=== PATIENT | female | born 1970 | race Caucasian/White ===

== ENCOUNTER 2017-10-22 10:28 | Observation (INO) | payer SELFPAY ==
[2017-10-22] MEDS ORDERED: PROMETHAZINE HCL 25 MG in DEXTROSE 5 % IN WATER 50 ML IV ONE ×2 (11:05)
[2017-10-22] MEDS ORDERED: NORMAL SALINE 1,000 ML IV ONE (11:05)
[2017-10-22] MEDS ORDERED: KETOROLAC TROMETHAMINE 30 MG/ML VIAL IV ONE (11:05)
--- NOTE | 2017-10-22 11:07 | ERNOTE ---
Medical Problem HPI - Narrative Date of Service: 10/22/17 - General Chief Complaint: Nausea/Vomiting Time Seen by Provider: 10/22/17 10:58 Source: patient Exam Limitations: no limitations - Immun/Allergies/Home Medications Immunizations: IMMUNIZATION HX Immunizations Up to Date Yes History of Influenza Vaccine No Hx Pneumococcal Vaccination No Allergies/Adverse Reactions: Allergies No Known Allergies Allergy (Verified 02/20/16 16:29) Home Medications: HOME MEDICATIONS Ondansetron [Zofran Odt] 8 mg PO Q8H PRN #12 tab 08/19/15 [Last Taken Unknown] Metoprolol Tartrate [Lopressor] 100 mg PO BID 10/19/15 [Last Taken Unknown] Acetaminophen [Tylenol] 650 mg PO QID PRN #30 tablet 02/25/16 [Last Taken Unknown] Calcium Carbonate [Calcium] 500 mg PO DAILY #0 tab.chew 02/25/16 [Last Taken Unknown] Magnesium Oxide [Mag-Ox 400] 400 mg PO TID #10 tablet 02/25/16 [Last Taken Unknown] Potassium Chloride [K-Dur] 20 meq PO DAILY 02/25/16 [Last Taken Unknown] - History of Present History Narrative: Pt. comes in with c/o diffuse abdominal pain and uncontrolled nausea and vomiting for a week. Pt. has been seen by her cancer doctor recently and is undergoing chemo therapy for her ovarian cancer and was told that this chemo is milder than previous and should not make her ill but she has been ill since starting this. Pt. states that she has not been able to hold down any of her oral medications do to her nausea. Pt. states taht she has not had a regular BM in a few days and states taht now she has diarrhea since this am. Timing: getting worse Severity: moderate Modifying Factors - (Improves): Present: other - denies Modifying Factors - (Worsens): Present: eating, medication Review of Systems - Review of Systems Constitutional: Present: weakness, fatigue, malaise. Absent: fever, chills EYE: Present: no symptoms reported ENT: Present: no symptoms reported. Absent: nose pain, nose congestion, nasal drainage, sore throat Respiratory: Present: no symptoms reported. Absent: shortness of breath, cough , wheezing Cardiology: Present: no symptoms reported. Absent: chest pain, palpitations, edema Gastrointestinal/Abdominal: Present: nausea, vomiting, constipation, abdominal pain - diffuse, eating less, drinking less. Absent: diarrhea Genitourinary: Present: no symptoms reported. Absent: frequency, pain, dysuria , decreased urinary output Musculoskeletal: Present: no symptoms reported. Absent: back pain, joint pain Skin: Present: no symptoms reported. Absent: rash, change in hair/nails Neurological: Present: no symptoms reported. Absent: headache, dizziness/light- headedness, numbness, tingling Endocrine: Present: no symptoms reported Hematologic/Lymphatic: Present: easy bruising. Absent: easy bleeding All Other Systems: All systems neg except as marked - Patient's Past Medical History Patient History - Medical: Anemia Patient History - Cardiac/Respiratory: Hypertension Patient History - Cancer: Ovarian Patient History - Surgical Procedures: , Hysterectomy, Other Patient History - Other: None - Social History Living Situations: home Abuse History: No History of abuse Psych History: No pertinent hx Smoking Status: Never smoker Have you smoked in the past 12 months: No Do you dip or chew tobacco: No Alcohol Use: sober Drug Use: none - Immunizations Immunizations Up to Date: Yes Hx Pneumococcal Vaccination: No History of Influenza Vaccine: No Physical Exam - Physical Exam General Appearance: Present: wd/wn, alert, no apparent distress Head Exam: Present: normal inspection, no evidence of injury Eye Exam: Normal inspection: bilateral Ears, Nose, Throat: Present: normal except -, normal pharynx, dry mucous membranes Neck: Present: normal inspection, nontender, supple, full range of motion. Absent: lymphadenopathy (R), lymphadenopathy (L) Respiratory: Present: no respiratory distress, normal breath sounds, no accessory muscle use, chest nontender, lungs clear. Absent: crackles, rales, rhonchi, wheezing Cardiovascular/Chest: Present: no murmur, normal peripheral pulses, tachycardia Gastrointestinal/Abdominal: Present: tenderness - diffuse, abnormal bowel sounds - rare, distended - asceites. Absent: rebound, McBurney sign, Obturator sign, Nolasco sign, Psoas sign Back Exam: Present: normal inspection, normal range of motion, no CVA tenderness , no vertebral tenderness Extremity Exam: Present: normal inspection, non-tender, normal range of motion, no edema Neurological Exam: Present: alert, oriented, normal mood/affect, no motor/ sensory deficits, pharmaceutical officer II-XII nml as tested, normal cerebellar test Skin Exam: Present: warm/dry, pallor, other - poor skin turgor ED Progress - Date and Time Seen: Date and Time: 10/22/[address] Lana Saravia who is on for her oncologist who states that she feels that pt. needs admission with paracentesis and rehydration and bowel management. [address] Sequeira who recommends admissitng pt. adding D5 1/2 NS and consulting radiology - Results and Orders Patient's Lab Results:: I have reviewed the patient's lab results. Results and Orders: Abnormal Lab Results 10/22/17 10/22/17 10/22/17 Range/Units 11:33 11:33 12:39 WBC 1.6 L (4.0-10.5) K/mm3 RBC 4.06 L (4.2-5.4) M/mm3 Hct 36.6 L (37.0-47.0) % MCH 31.3 H (27-31) pg Plt Count 42 L (150-450) K/mm3 MPV 10.8 H (6.0-9.5) fl Neutrophils % (Manual) 26 L (42-75) % Lymphocytes % (Manual) 63 H (20-51) % Eosinophils % (Manual) 4 H (0-3) % Neutrophils # (Manual) 0.4 L (1.3-6.0) K/mm3 Lymphocytes # (Manual) 1.0 L (1.5-3.5) k/mm3 Atypic/Reactive Lymphs 4 H (0-2) % Platelet Estimate Decreased L (NORMAL) Plasma Sodium 143 H (130-142) mmol/L Potassium 2.9 L (3.4-4.6) mmol/L Anion Gap 15.0 H (6.8-13.8) mmol/L Random Glucose 133 H (70-110) mg/dL Total Bilirubin 1.4 H (0.0-1.1) mg/dL Albumin 3.0 L (3.4-5.0) gm/dl Amylase 20 L (25-115) U/L Lipase 45 L (73-393) U/L Urine Protein 30 H (NEGATIVE) mg/dL Urine Bilirubin 3 H (NEGATIVE) mg/dl Urine Urobilinogen 2.0 H (NORMAL) EU/dl Urine WBC Trace H (0-5) /hpf Ur Epithelial Cells 5-10 H (0-5) /hpf - Vital Signs Patient's Vital Signs:: I have reviewed the patient's vital signs. Vital Signs: Vital Signs 10/22/17 10:39 Temperature 36.0 C L Pulse Rate 127 H Respiratory 17 Rate Blood Pressure 138/118 O2 Sat by Pulse 99 Oximetry - EKG EKG: changed from - 2016, other - SR with mild ST depression in anterior leads only 1 box so not likely ischemia but more likely hypokalemia EKG read: Interp. by me - X-Ray X-Ray #1 X-Ray: abdomen Interpretation: Reviewed by me X-ray Comments: large amount of ascietes - CT/Ultrasound CT/Ultrasound Narrative: CT scan with severe increasing asceites, no bowel obstruction. - Progress/Reassessment Chief Complaint: Nausea/Vomiting Progress:: Unchanged Departure Clinical Impression: Hypokalemia, Thrombocytopenia Ascites Qualifiers: Ascites type: malignant Qualified Code(s): R18.0 - Malignant ascites Abdominal pain Qualifiers: Abdominal location: generalized Qualified Code(s): R10.84 - Generalized abdominal pain Ovarian ca Qualifiers: Laterality: unspecified laterality Qualified Code(s): C56.9 - Malignant neoplasm of unspecified ovary Neutropenia Qualifiers: Neutropenia type: secondary to cancer chemotherapy Qualified Code(s): D70.1 - Agranulocytosis secondary to cancer chemotherapy; T45.1X5A - Adverse effect of antineoplastic and immunosuppressive drugs, initial encounter; T45.1X5A - Adverse effect of antineoplastic and immunosuppressive drugs, initial encounter - Departure Disposition: [facility] Condition: Serious
[2017-10-22] MEDS ORDERED: KETOROLAC TROMETHAMINE 30 MG/ML VIAL ONE (11:15)
[2017-10-22 11:40] LABS: Hematocrit 36.6 % (37.0-47.0); Hemoglobin 12.7 gm/dL (12.5-16.0); Mean Cell Volume 90.1 fl (78-100); Mean Corpuscular Hemoglobin 31.3 pg (27-31); Mean Corpuscular Hgb Conc 34.7 g/dl (32-36); Mean Platelet Volume 10.8 fl (6.0-9.5); Platelet Count 42 K/mm3 (150-450); Red Blood Count 4.06 M/mm3 (4.2-5.4); Red Cell Distribution Width 12.4 % (11.5-14.0); White Blood Count 1.6 K/mm3 (4.0-10.5)
[2017-10-22 11:44] LABS: Total Cells Counted 100
[2017-10-22 11:57] LABS: BUN/Creatinine Ratio 18.1 (9.0-21.6); Bilirubin, Total 1.4 mg/dL (0.0-1.1); Ca. Corrected For Albumin 9.4 mg/dL (8.4-10.2); Calcium * 8.9 mg/dL (7.9-10.9); Carbon Dioxide 26.9 mmol/L (24-32.6); Potassium 2.9 mmol/L (3.4-4.6); Total Protein 6.3 gm/dL (6.2-8.2)
[2017-10-22 12:08] LABS: Atypical (Reactive) Lymph 4 % (0-2); Eosinophil 4 % (0-3); Lymphocyte 63 % (20-51); Macrocytosis 1+; Monocyte 3 % (0-9); Neutrophil 26 % (42-75); Neutrophil # 0.4 K/mm3 (1.3-6.0); Platelet Estimate Decreased (NORMAL)
[2017-10-22] MEDS: POTASSIUM CHLORIDE IN WATER 100 ML IV SCH ×4 (12:32→15:40)
[2017-10-22 12:50] LABS: Urine Bilirubin 3 mg/dl (NEGATIVE); Urine Blood Negative /ul (NEGATIVE); Urine Ketone 50 mg/dL (NEGATIVE); Urine Nitrite Negative (NEGATIVE); Urine Protein 30 mg/dL (NEGATIVE); Urine Specific Gravity 1.025 SP.GR. (1.005-1.010)
[2017-10-22 12:59] LABS: Urine Color Yellow
[2017-10-22 13:00] LABS: Urine Appearance Slightly Cloudy; Urine Bacteria TRACE; Urine RBC TRACE /hpf (0-5); Urine WBC TRACE /hpf (0-5)
[2017-10-22] MEDS ORDERED: DIATRIZOATE MEGLUMINE, SODIUM 30 ML BTL PO ONE (13:46)
[2017-10-22] MEDS ORDERED: DIATRIZOATE MEGLUMINE, SODIUM 30 ML BTL ONE (14:00)
[2017-10-22] MEDS ORDERED: HYDROmorphone HCL 2 MG/ML VIAL ONE (14:31)
[2017-10-22] MEDS ORDERED: HYDROmorphone HCL 2 MG/ML VIAL IV ONE (14:32)
[2017-10-22] MEDS ORDERED: ONDANSETRON HCL/PF 2 MG/ML VIAL ONE (15:17)
[2017-10-22] MEDS ORDERED: ONDANSETRON HCL/PF 2 MG/ML VIAL IV ONE (15:17)
[2017-10-22 17:28] LABS: Magnesium 1.2 mg/dL (1.2-2.8); Phosphorus 3.2 mg/dL (2.2-4.2)
[2017-10-22 18:05] LABS: Prothrombin Time (Patient) 11.6 Seconds (9.0-11.0)
[2017-10-22 18:09] LABS: INR 1.16 INR (0.90-1.10)
[2017-10-22] MEDS: DEXTROSE 5%-0.5 NORMAL SALINE 1,000 ML IV PRN (18:46)
[2017-10-22] MEDS ORDERED: oxyCODONE HCL/ACETAMINOPHEN 1 TAB TABLET PO PRN (20:09)
[2017-10-22] MEDS ORDERED: MEPERIDINE HCL/PF 50 MG/ML SYRG IV PRN (20:11)
[2017-10-22] MEDS ORDERED: ACETAMINOPHEN 325 MG TABLET PO PRN (20:12)
[2017-10-22] MEDS ORDERED: ONDANSETRON HCL/PF 2 MG/ML VIAL IV PRN (20:13)
--- NOTE | 2017-10-22 20:37 | HP ---
Chief Complaint - Chief Complaint Date of Service: 10/22/17 Time of Service: 20:17 Chief Complaint: abdominal pain, nausea, vomiting and diarrhea History of Present Illness: 47 years old female adm to [facility] with reports of nausea, vomiting and diarrhea that got worst today. PMH significant for ovarian cancer currently getting chemotherapy and Hypertension. pt stated since her last chemo treatment on Sunday her s/s had intensified. She had her first treatment the week before. pt stated her s/s was continues and only intensified after second treatment. pt have 3rd chemo schedule for tomorrow. She called Oncologist in [place] who recommend she come to the ER due to her s/s. in ER K+ 2.9, WBC 1.6 , PLT 42 she is clinically dehydrated and IVF rehydration, Ascites with reports of abdominal pain. pt is schedule for US guided paracentesis tomorrow. Plan of care discussed with pt and family they verbalized understanding and agree. - Patient's Past Medical History Patient History - Medical: Anemia Patient History - Cardiac/Respiratory: Hypertension Patient History - Cancer: Ovarian Patient History - Surgical Procedures: , Hysterectomy, Other Patient History - Other: None - Family History Mother Family History - Medical: Diabetes Type 2 Family History - Cardiac/Respiratory: Hyperlipidemia Father Family History - Medical: Diabetes Type 2 Family History - Cardiac/Respiratory: Hypertension - Social History Living Situations: spouse Abuse History: No History of abuse Psych History: No pertinent hx Smoking Status: Never smoker Have you smoked in the past 12 months: No Do you dip or chew tobacco: No Alcohol Use: sober Drug Use: none - Immunizations Immunizations Up to Date: Yes Hx Pneumococcal Vaccination: No History of Influenza Vaccine: No Review Of Systems (GEN) - Review of Systems Generalized/Overall Review: Present: Malaise, Fatigue EENTM: Present: No Symptoms Reported Respiratory: Present: No Symptoms Reported Cardiac: Present: No Symptoms Reported Abdominal: Present: Nausea, Vomiting, Abdominal Pain, Diarrhea, Other - distended abdomen Genitourinary: Present: No Symptoms Reported Musculoskeletal: Present: No Symptoms Reported Neurological: Present: No Symptoms Reported Skin: Present: No Symptoms Reported Endocrine: Present: No Symptoms Reported Immunizations: IMMUNIZATION HX Immunizations Up to Date Yes History of Influenza Vaccine No Hx Pneumococcal Vaccination No Allergies/Adverse Reactions: Allergies Allergy/AdvReac Type Severity Reaction Status Date / Time No Known Allergies Allergy Verified 02/20/16 16:29 Home Medications: HOME MEDICATIONS Ondansetron [Zofran Odt] 8 mg PO Q8H PRN #12 tab 08/19/15 [Last Taken Unknown] Metoprolol Tartrate [Lopressor] 100 mg PO BID 10/19/15 [Last Taken Unknown] Acetaminophen [Tylenol] 650 mg PO QID PRN #30 tablet 02/25/16 [Last Taken Unknown] Exam - Exam Vital Signs: Vital Signs - Last Taken Temp 36.8 C 10/22/17 18:53 Pulse 108 H 10/22/17 18:53 Resp 18 10/22/17 18:53 BP 141/103 10/22/17 18:53 Pulse Ox 99 10/22/17 18:53 Constitutional: Present: Alert, Oriented x3, Cooperative, Well developed, No distress, Obese ENT Exam: Present: hearing grossly normal Eye Exam: bilateral eye: normal inspection Neck: Present: full range of motion Back Exam: Present: normal inspection Breasts: Present: Exam deferred Respiratory: Present: chest non-tender, normal breath sounds, no respiratory distress, decreased breath sounds Cardiovascular/Chest: Present: normal peripheral pulses, regular rate, rhythm, no chest tenderness, no edema, no gallop Peripheral Pulses: dorsalis-pedis (R): 2+, dorsalis-pedis (L): 2+ Abdomen: Present: Normal bowel sounds, soft, no hepatospenomegaly, firm, distended /Rectal: Present: Exam deferred Extremity: Present: normal range of motion, non-tender, normal inspection, no pedal edema, no calf tenderness Skin Exam: Present: warm/dry Lymphatic: Present: no adenopathy Neurologic: Present: oriented x 3 Appearance: Present: appropriate appearance, appropriate insight Eye contact: Present: cooperative, good eye contact Thoughts: Present: normal thought pattern, no apparent hallucination Diagnostic Studies: Abnormal Lab Results 10/22/17 Range/Units 17:52 PT 11.6 H (9.0-11.0) Seconds INR (Anticoag Therapy) 1.16 H (0.90-1.10) INR Laboratory Results WBC 1.6 K/mm3 (4.0-10.5) L 10/22/17 11:33 RBC 4.06 M/mm3 (4.2-5.4) L 10/22/17 11:33 Hgb 12.7 gm/dL (12.5-16.0) 10/22/17 11:33 Hct 36.6 % (37.0-47.0) L 10/22/17 11:33 MCV 90.1 fl (78-100) 10/22/17 11:33 MCH 31.3 pg (27-31) H 10/22/17 11:33 MCHC 34.7 g/dl (32-36) 10/22/17 11:33 RDW 12.4 % (11.5-14.0) 10/22/17 11:33 Plt Count 42 K/mm3 (150-450) L 10/22/17 11:33 MPV 10.8 fl (6.0-9.5) H 10/22/17 11:33 Neutrophils % (Manual) 26 % (42-75) L 10/22/17 11:33 Lymphocytes % (Manual) 63 % (20-51) H 10/22/17 11:33 Monocytes % (Manual) 3 % (0-9) 10/22/17 11:33 Eosinophils % (Manual) 4 % (0-3) H 10/22/17 11:33 Neutrophils # (Manual) 0.4 K/mm3 (1.3-6.0) L 10/22/17 11:33 Lymphocytes # (Manual) 1.0 k/mm3 (1.5-3.5) L 10/22/17 11:33 Monocytes # (Manual) 0.0 k/mm3 (0.0-1.0) 10/22/17 11:33 Eosinophils # (Manual) 0.1 k/mm3 (0.0-0.7) 10/22/17 11:33 Atypic/Reactive Lymphs 4 % (0-2) H 10/22/17 11:33 Platelet Estimate Decreased (NORMAL) L 10/22/17 11:33 Macrocytosis 1+ 10/22/17 11:33 PT 11.6 Seconds (9.0-11.0) H 10/22/17 17:52 INR (Anticoag Therapy) 1.16 INR (0.90-1.10) H 10/22/17 17:52 Sodium 142 mmol/L (132-142) 10/22/17 11:33 Plasma Sodium 143 mmol/L (130-142) H 10/22/17 11:33 Potassium 2.9 mmol/L (3.4-4.6) L 10/22/17 11:33 Chloride 103 mmol/L (97-106) 10/22/17 11:33 Carbon Dioxide 26.9 mmol/L (24-32.6) 10/22/17 11:33 Anion Gap 15.0 mmol/L (6.8-13.8) H 10/22/17 11:33 BUN 17 mg/dL (3-23) 10/22/17 11:33 Creatinine 0.94 mg/dL (0.4-1.4) 10/22/17 11:33 Est GFR (Non-Af Amer) 67 mL/min (60-130) D 10/22/17 11:33 BUN/Creatinine Ratio 18.1 (9.0-21.6) 10/22/17 11:33 Random Glucose 133 mg/dL (70-110) H 10/22/17 11:33 Calcium 8.9 mg/dL (7.9-10.9) 10/22/17 11:33 Calcium Adj for Albumin 9.4 mg/dL (8.4-10.2) 10/22/17 11:33 Phosphorus 3.2 mg/dL (2.2-4.2) 10/22/17 11:33 Magnesium 1.2 mg/dL (1.2-2.8) 10/22/17 11:33 Total Bilirubin 1.4 mg/dL (0.0-1.1) H 10/22/17 11:33 AST 22 U/L (0-48) 10/22/17 11:33 ALT 31 U/L (19-67) 10/22/17 11:33 Alkaline Phosphatase 102 U/L (50-170) 10/22/17 11:33 Total Protein 6.3 gm/dL (6.2-8.2) 10/22/17 11:33 Albumin 3.0 gm/dl (3.4-5.0) L 10/22/17 11:33 Amylase 20 U/L (25-115) L 10/22/17 11:33 Lipase 45 U/L (73-393) L 10/22/17 11:33 Urine Color Yellow 10/22/17 12:39 Urine Appearance Slightly cloudy 10/22/17 12:39 Urine pH 6.0 pH (5.0-7.0) 10/22/17 12:39 Ur Specific Slaughter 1.025 SP.GR. (1.005-1.010) 10/22/17 12:39 Urine Protein 30 mg/dL (NEGATIVE) H 10/22/17 12:39 Urine Glucose (UA) Negative mg/dL (NEGATIVE) 10/22/17 12:39 Urine Ketones 50 mg/dL (NEGATIVE) 10/22/17 12:39 Urine Blood Negative /ul (NEGATIVE) 10/22/17 12:39 Urine Nitrate Negative (NEGATIVE) 10/22/17 12:39 Urine Bilirubin 3 mg/dl (NEGATIVE) H 10/22/17 12:39 Urine Ictotest Negative (NEGATIVE) 10/22/17 12:39 Prot Sulfosalicylic Acd 1+ mg/dL (0) 10/22/17 12:39 Urine Urobilinogen 2.0 EU/dl (NORMAL) H 10/22/17 12:39 Ur Leukocyte Esterase Negative /ul (NEGATIVE) 10/22/17 12:39 Urine RBC Trace /hpf (0-5) 10/22/17 12:39 Urine WBC Trace /hpf (0-5) H 10/22/17 12:39 Ur Epithelial Cells 5-10 /hpf (0-5) H 10/22/17 12:39 Urine Bacteria Trace (NONE) 10/22/17 12:39 Urine Culture Comments No culture indicated 10/22/17 12:39 CT ABD/Pelvic: Interval increased in abdomen and pelvic ascites. Assessment/Plan - Narrative Narrative: ovarian cancer pt stated she had her second chemo treatment and was feeling the side effects much worst than the first. Scheduled Chemo sessions 10/09/17, 10/16/17, 10/23/17 She had N/V/D x2 days. On adm K+ 2.9 supplemented and rehydrated. Monitor CBC CMP in am Abdominal pain/Ascites pt report of abdomen distended and firm CT ABD/Pelvic: Interval increased in abdomen and pelvic ascites. Paracentesis schedule for tomorrow at 1pm Zofran for nausea and vomiting Keep NPO after midnight Thrombocytopenia- due to chemotherapy On adm PLT 42 Monitor Conditions as a result of chemotherapy Neutropenia Leukopenia hypokalemia continue to monitor Code status: Full GI ppx: pepcid VTE ppx:Ambulate and SCD - Assessment/Plan (1) Abdominal pain Problem: Acute Qualifiers: Abdominal location: generalized Qualified Code(s): R10.84 - Generalized abdominal pain (2) Ascites Problem: Acute Qualifiers: Ascites type: malignant Qualified Code(s): R18.0 - Malignant ascites (3) Hypokalemia Problem: Acute (4) Neutropenia Problem: Acute Qualifiers: Neutropenia type: secondary to cancer chemotherapy Qualified Code(s): D70.1 - Agranulocytosis secondary to cancer chemotherapy; T45.1X5A - Adverse effect of antineoplastic and immunosuppressive drugs, initial encounter; T45.1X5A - Adverse effect of antineoplastic and immunosuppressive drugs, initial encounter (5) Ovarian ca Problem: Acute Qualifiers: Laterality: unspecified laterality Qualified Code(s): C56.9 - Malignant neoplasm of unspecified ovary (6) Thrombocytopenia Problem: Acute (7) Anemia Problem: Acute (8) Hypomagnesemia Problem: Acute (9) Leukopenia due to antineoplastic chemotherapy Problem: Acute
[2017-10-22] MEDS: METOPROLOL TARTRATE 100 MG TABLET PO SCH (21:39)
[2017-10-22 22:06] LABS: Albumin * 2.9 gm/dl (3.4-5.0); Anion Gap 12.7 mmol/L (6.8-13.8); BUN/Creatinine Ratio 18.1 (9.0-21.6); Bilirubin, Total 1.2 mg/dL (0.0-1.1); Calcium * 8.4 mg/dL (7.9-10.9); Carbon Dioxide 27.5 mmol/L (24-32.6); Potassium 3.2 mmol/L (3.4-4.6); Total Protein 5.6 gm/dL (6.2-8.2)
[2017-10-23] MEDS: DEXTROSE 5%-0.5 NORMAL SALINE 1,000 ML IV PRN ×2 (02:50→10:42)
[2017-10-23 06:03] LABS: Hematocrit 32.6 % (37.0-47.0); Hemoglobin 11.1 gm/dL (12.5-16.0); Mean Cell Volume 91.6 fl (78-100); Mean Corpuscular Hemoglobin 31.2 pg (27-31); Mean Platelet Volume 10.6 fl (6.0-9.5); Platelet Count 32 K/mm3 (150-450); Red Blood Count 3.56 M/mm3 (4.2-5.4); Red Cell Distribution Width 12.6 % (11.5-14.0)
[2017-10-23 06:06] LABS: Total Cells Counted 100
[2017-10-23 06:20] LABS: Albumin * 2.7 gm/dl (3.4-5.0); Anion Gap 9.1 mmol/L (6.8-13.8); BUN/Creatinine Ratio 19.6 (9.0-21.6); Bilirubin, Total 1.1 mg/dL (0.0-1.1); Ca. Corrected For Albumin 8.9 mg/dL (8.4-10.2); Calcium * 8.2 mg/dL (7.9-10.9); Carbon Dioxide 29.1 mmol/L (24-32.6); Potassium 3.2 mmol/L (3.4-4.6); Total Protein 5.7 gm/dL (6.2-8.2)
[2017-10-23 06:28] LABS: Atypical (Reactive) Lymph 2 % (0-2); Band 4 % (0-2.0); Eosinophil 4 % (0-3); Immature Granulocyte 1 (0-1); Lymphocyte 58 % (20-51); Macrocytosis 1+; Monocyte 2 % (0-9); Neutrophil 29 % (42-75); Neutrophil # 0.6 K/mm3 (1.3-6.0); Platelet Estimate Decreased (NORMAL)
[2017-10-23] MEDS ORDERED: POTASSIUM CHLORIDE 20 MEQ TABLET.SA PO ONE (06:45)
--- NOTE | 2017-10-23 06:59 | PN ---
Subjective - Date and Time Seen Date: 10/23/17 Time: 06:55 Subjective Narrative: patient was seen today in bed no acute distress, pt stated she vomited last night after taking demoral. She anticipating paracentesis later today approximately at noon. Objective - Review of Systems Generalized/Overall Review: Reports: No Symptoms Reported EENTM: Reports: No Symptoms Reported Respiratory: Reports: No Symptoms Reported Cardiac: Reports: No Symptoms Reported Abdominal: Reports: Nausea, Vomiting, Abdominal Pain Genitourinary Symptoms: Reports: No Symptoms Reported Musculoskeletal Complaints: Reports: No Symptoms Reported Neurological: Reports: No Symptoms Reported Skin: Reports: No Symptoms Reported Endocrine: Reports: No Symptoms Reported - Vitals Vitals: Last Vital Signs Temp 37.4 C 10/23/17 02:14 Pulse 57 L 10/23/17 02:14 Resp 16 10/23/17 02:14 BP 119/58 10/23/17 02:14 Pulse Ox 97 10/23/17 02:14 - Abnormal Lab Findings Abnormal Lab Findings: Abnormal Lab Results 10/22/17 10/22/17 10/23/17 Range/Units 17:52 21:35 05:55 WBC (4.0-10.5) K/mm3 RBC (4.2-5.4) M/mm3 Hgb (12.5-16.0) gm/dL Hct (37.0-47.0) % MCH (27-31) pg Plt Count (150-450) K/mm3 MPV (6.0-9.5) fl Neutrophils % (Manual) (42-75) % Band Neuts % (Manual) (0-2.0) % Lymphocytes % (Manual) (20-51) % Eosinophils % (Manual) (0-3) % Neutrophils # (Manual) (1.3-6.0) K/mm3 Lymphocytes # (Manual) (1.5-3.5) k/mm3 Platelet Estimate (NORMAL) PT 11.6 H (9.0-11.0) Seconds INR (Anticoag Therapy) 1.16 H (0.90-1.10) INR Potassium 3.2 L 3.2 L (3.4-4.6) mmol/L Random Glucose 130 H 121 H (70-110) mg/dL Total Bilirubin 1.2 H (0.0-1.1) mg/dL Total Protein 5.6 L 5.7 L (6.2-8.2) gm/dL Albumin 2.9 L 2.7 L (3.4-5.0) gm/dl 10/23/17 Range/Units 05:55 WBC 2.0 L D (4.0-10.5) K/mm3 RBC 3.56 L (4.2-5.4) M/mm3 Hgb 11.1 L (12.5-16.0) gm/dL Hct 32.6 L (37.0-47.0) % MCH 31.2 H (27-31) pg Plt Count 32 L (150-450) K/mm3 MPV 10.6 H (6.0-9.5) fl Neutrophils % (Manual) 29 L (42-75) % Band Neuts % (Manual) 4 H (0-2.0) % Lymphocytes % (Manual) 58 H (20-51) % Eosinophils % (Manual) 4 H (0-3) % Neutrophils # (Manual) 0.6 L (1.3-6.0) K/mm3 Lymphocytes # (Manual) 1.2 L (1.5-3.5) k/mm3 Platelet Estimate Decreased L (NORMAL) PT (9.0-11.0) Seconds INR (Anticoag Therapy) (0.90-1.10) INR Potassium (3.4-4.6) mmol/L Random Glucose (70-110) mg/dL Total Bilirubin (0.0-1.1) mg/dL Total Protein (6.2-8.2) gm/dL Albumin (3.4-5.0) gm/dl - Exam Constitutional: Present: Alert, Oriented x3, Cooperative, Well developed, No distress, Obese ENT Exam: Present: hearing grossly normal Neck: Present: non-tender, full range of motion Respiratory: Present: chest non-tender, lungs clear, normal breath sounds, no respiratory distress Cardiovascular/Chest: Present: normal peripheral pulses, regular rate, rhythm, no chest tenderness, no edema, no gallop Abdomen: Present: obese, firm, distended /Rectal: Present: Exam deferred Extremity: Present: normal range of motion, non-tender, normal inspection, no pedal edema, no calf tenderness Skin Exam: Present: normal color, warm/dry, no cyanosis Neurologic: Present: alert, oriented x 3 Appearance: Present: appropriate appearance, appropriate insight Eye contact: Present: cooperative, good eye contact Thoughts: Present: normal thought pattern Assessment/Plan Plan Narrative: Abdominal pain/Ascites pt report of abdomen distended and firm CT ABD/Pelvic: Interval increased in abdomen and pelvic ascites. Paracentesis schedule for tomorrow at 1pm Zofran for nausea and vomiting Keep NPO for paracentesis, give medication with sips of water. ovarian cancer pt stated she had her second chemo treatment and was feeling the side effects much worst than the first. Scheduled Chemo sessions 10/09/17, 10/16/17, 10/23/17 She had N/V/D x2 days. On adm K+ 2.9--->3.2 additional supplemented. Thrombocytopenia- due to chemotherapy On adm PLT 42--->32 Monitor Conditions as a result of chemotherapy Neutropenia Leukopenia hypokalemia continue to monitor Code status: Full GI ppx: pepcid VTE ppx:Ambulate and SCD - Problems/Diagnosis (1) Abdominal pain Problem: Acute Qualifiers: Abdominal location: generalized Qualified Code(s): R10.84 - Generalized abdominal pain (2) Ascites Problem: Acute Qualifiers: Ascites type: malignant Qualified Code(s): R18.0 - Malignant ascites (3) Hypokalemia Problem: Acute (4) Neutropenia Problem: Acute Qualifiers: Neutropenia type: secondary to cancer chemotherapy Qualified Code(s): D70.1 - Agranulocytosis secondary to cancer chemotherapy; T45.1X5A - Adverse effect of antineoplastic and immunosuppressive drugs, initial encounter; T45.1X5A - Adverse effect of antineoplastic and immunosuppressive drugs, initial encounter (5) Ovarian ca Problem: Acute Qualifiers: Laterality: unspecified laterality Qualified Code(s): C56.9 - Malignant neoplasm of unspecified ovary (6) Thrombocytopenia Problem: Acute (7) Anemia Problem: Acute (8) Hypomagnesemia Problem: Acute (9) Leukopenia due to antineoplastic chemotherapy Problem: Acute
[2017-10-23] MEDS: METOPROLOL TARTRATE 100 MG TABLET PO SCH (09:19)
[2017-10-23 10:38] VITALS: BP 132/84
--- NOTE | 2017-10-23 12:20 | DS ---
(1) Ascites Problem: Acute Qualifiers: Ascites type: malignant Qualified Code(s): R18.0 - Malignant ascites (2) Abdominal pain Problem: Acute Qualifiers: Abdominal location: generalized Qualified Code(s): R10.84 - Generalized abdominal pain (3) Hypokalemia Problem: Acute (4) Ovarian ca Problem: Acute Qualifiers: Laterality: unspecified laterality Qualified Code(s): C56.9 - Malignant neoplasm of unspecified ovary Procedures Performed: see notes below List Procedures: Paracentesis performed by Dr. Mora. Discharge Disposition: Home self care Disposition: Home self-care Condition: Serious Discharge Activity: Activity as tolerated Discharge Diet: General/regular food Prescriptions (Any new or edited meds): Ondansetron HCl/Pf [Zofran] 8 mg PO Q6H PRN 14 Days #20 udtab PRN Reason: Nausea And Vomiting oxyCODONE HCL/ACETAMINOPHEN [Percocet 5 MG/325 MG] 2 tab PO Q6H PRN #60 tablet PRN Reason: Pain Complete Home Medications List: Complete Home Medication List: Ondansetron [Zofran Odt] 8 mg PO Q8H PRN #12 tab 08/19/15 Metoprolol Tartrate [Lopressor] 100 mg PO BID 10/19/15 Acetaminophen [Tylenol] 650 mg PO QID PRN #30 tablet 02/25/16 Ondansetron HCl/Pf [Zofran] 8 mg PO Q6H PRN 14 Days #20 udtab 10/23/17 oxyCODONE HCL/ACETAMINOPHEN [Percocet 5 MG/325 MG] 2 tab PO Q6H PRN #60 tablet 10/23/17
[2017-10-23] MEDS ORDERED: HEPARIN SOD.,PORCINE 100 UNITS/ML ONE (13:13)
== END 2017-10-23 13:40 | disposition home or self-care (01) ==
LOC: ER 10:28 → MS 17:13
PROVIDERS: ADMIT Family Medicine; ATTEND Family Medicine
PROC: 0W9G3ZZ Drainage of Peritoneal Cavity, Percutaneous Approach (ICD-10-PCS; principal; 2017-10-23)
DX: C56.9 Malignant neoplasm of unspecified ovary (principal); R18.0 Malignant ascites; R10.84 Generalized abdominal pain; E87.6 Hypokalemia; D70.1 Agranulocytosis secondary to cancer chemotherapy; T45.1X5A Adverse effect of antineoplastic and immunosuppressive drugs, initial encounter; D69.6 Thrombocytopenia, unspecified; D64.9 Anemia, unspecified; E83.42 Hypomagnesemia; Z68.42 Body mass index [BMI] 45.0-49.9, adult
CPT/HCPCS: 36415; 49083; 74019; 74177; 80053; 81001; 82150; 83690; 83735; 84100; 85007; 85025; 85610; 88108; 88305; 93005; 96365; 96366; 96367; 96375; 99285; G0378; J2405